=== PATIENT | female | born 1965 | race Caucasian/White ===

== ENCOUNTER 2018-10-29 15:34 | Emergency (ER) | payer BC ==
[~2018-10-29] VITALS: Ht 175.3 cm; Wt 90.7 kg
[2018-10-29 15:45] VITALS: BP_SYST 136
[2018-10-29] MEDS ORDERED: KETOROLAC TROMETHAMINE 60 MG/2 ML VIAL IM ONE (16:15)
[2018-10-29 17:22] VITALS: BP_SYST 128
== END 2018-10-29 17:22 | disposition home or self-care (01) ==
LOC: SED 15:34
DX: S46.912A Strain of unspecified muscle, fascia and tendon at shoulder and upper arm level, left arm, initial encounter (principal); S40.022A Contusion of left upper arm, initial encounter; R07.89 Other chest pain; E78.5 Hyperlipidemia, unspecified; I10 Essential (primary) hypertension; V43.52XA Car driver injured in collision with other type car in traffic accident, initial encounter; Y93.89 Activity, other specified; Y92.410 Unspecified street and highway as the place of occurrence of the external cause; Y99.8 Other external cause status
CPT/HCPCS: 71045; 73030; 73060; 96372; 99283; J1885